=== PATIENT | female | born 1980 | race Caucasian/White ===

== ENCOUNTER → 2024-01-05 10:40 | Outpatient (REF) | payer OTHER, SELFPAY | LOC: WDC 10:40 | PROVIDERS: ATTENDING PHYSICIAN Obstetrics & Gynecology Gynecology; FAMILY PHYSICIAN Family Medicine | DX: Z12.31 Encounter for screening mammogram for malignant neoplasm of breast (principal) | CPT/HCPCS: 77063; 77067 ==

== ENCOUNTER → 2024-01-11 08:51 | Outpatient (REF) | payer OTHER, SELFPAY | LOC: WDC 08:51 | PROVIDERS: ATTENDING PHYSICIAN Obstetrics & Gynecology Gynecology; FAMILY PHYSICIAN Family Medicine | DX: R92.8 Other abnormal and inconclusive findings on diagnostic imaging of breast (principal) | CPT/HCPCS: 76642 ==

== ENCOUNTER 2024-10-01 15:00 | Emergency (ER) | payer OTHER, SELFPAY ==
[2024-10-01 15:04] VITALS: BP 161/102
[2024-10-01 15:31] LABS: % Basophils 0.5 % (0-2); % Eosinophils 0.1 % (0-6); % Immature Granulocytes 0.3 % (0-0.5); % Monocytes 7.6 % (1.7-9.3); % Neutrophils 82.5 % (42.2-75.2); Absolute Basophils 0.1 10^3/uL (0-0.2); Absolute Immature Granulocytes 0.1 10^3/uL (0-0.05); Absolute Lymphocytes 1.6 10^3/uL (1.2-3.4); Absolute Monocytes 1.3 10^3/uL (0.1-0.6); Absolute Neutrophils 14.5 10^3/uL (1.4-6.5); Hematocrit 38.8 % (37.0-47.0); Hemoglobin 13.5 g/dL (12.0-16.0); Mean Corp Hgb Conc. 34.8 g/dL (33.0-37.0); Mean Corpuscular Hgb 31.7 pg (27.0-31.0); Mean Corpuscular Volume 91.1 fL (81.0-99.0); Nucleated Red Blood Cells % 0 %; Platelet Count 290 10^3/uL (130-400); Red Blood Cell Count 4.26 10^6/uL (4.20-5.40); Red Cell Dist. Width 12.2 % (11.5-14.5); White Blood Cell Count 17.6 10^3/uL (4.8-10.8)
[2024-10-01 15:39] LABS: HCG, Serum Qualitative Screen Negative
[2024-10-01 15:40] LABS: INR 0.96; PT 13.1 Sec (11.4-14.6)
[2024-10-01 15:41] LABS: APTT 36.2 Sec (23.4-35.0)
[2024-10-01 15:45] LABS: ALT (SGPT) 17 U/L (0-35); AST (SGOT) 21 U/L (14-36); Albumin 4.6 g/dl (3.5-5.0); Alkaline Phosphatase 106 U/L (38-126); Blood Urea Nitrogen 11 mg/dl (7-17); Calcium 9.6 mg/dl (8.4-10.2); Carbon Dioxide 23 mmol/L (22-30); Chloride 104 mmol/L (98-107); Glucose 110 mg/dl (70-99); Potassium 3.7 mmol/L (3.5-5.1); Sodium 137 mmol/L (135-145); Total Bilirubin 0.7 mg/dl (0.2-1.3); Total Protein 7.6 g/dl (6.3-8.2); eGFR > 60.00
[2024-10-01 17:31] VITALS: BP 126/81
[2024-10-01] MEDS: TYLENOL 1000 MG PO (17:32)
[2024-10-01 17:36] VITALS: BMI 27.5
--- NOTE | 2024-10-01 17:37 | ED.GENMED ---
History of Present Illness
General
Chief Complaint: Fever
Source: patient
Exam Limitations: none
Time Seen by Provider: 10/01/24 17:16
History of Present Illness
History of Present Illness:
44-year-old female otherwise healthy presents complaining of fatigue lower abdominal discomfort chills. She realized after the past 10 days she had a retained tampon. She saw her family doctor today who saw the tampon. The patient self removed
the tampon. She presented here for evaluation with rapid heart rate and fever. She denies vomiting cough chest pain or shortness of breath. No urinary symptoms. No other complaints at this time
Past History
Past History
ED Past Medical History: None
Social History
Tobacco: Non-smoker
Personal:
Living: with family
Phy Exam
Physical Exam
Physical Exam:
General: Well-appearing female no acute respiratory distress
HEENT normocephalic atraumatic
Heart: Tachycardic but regular
Lungs: Clear no wheeze
Abdomen is soft nontender nondistended
Extremities: No cyanosis
Sepsis
Sepsis Screening
Sepsis Assessment: Sepsis
Sepsis Screen
Sepsis Screen: Sepsis
Date: 10/01/24
Time: 20:32
Course
Orders/Labs/Results
Orders:
Orders
10/01/24 15:07
Test Result ONCE
10/01/24 15:09
Electrocardiogram (*1) Urgent
Reason for Study: Tachycardia
EKG- Treatment ONCE
10/01/24 15:18
Complete Blood Count/With Diff Urgent
Comprehensive Metabolic Panel Urgent
HCG, Serum Qualitative Screen Urgent
Lactic Acid Urgent
PT/INR [Prothrombin Time] Urgent
Is patient on Coumadin/Warfarin?: No
Comment: [email or web address]
PTT Urgent
Blood Culture Q30M
TEETEE Source: Blood/Venous
Specimen Description:
10/01/24 17:26
0.9% Sodium Chloride 1000 ml [Nss] 1,000 ml IV BOLUS
Acetaminophen [Tylenol] 1,000 mg PO NOW STA
10/01/24 17:40
Vancomycin [Vancocin] 2,000 mg 0.9% Sodium Chloride 500 ml [Nss] 500 ml IV NOW
10/01/24 17:47
COVID-19 Antigen Urgent
Source: Nasal Swab
Blood Culture Q30M
TEETEE Source: Blood/Venous
Specimen Description:
Influenza A+B Rapid Molecular Urgent
TEETEE Source: Nasal Swab
Specimen Description:
10/01/24 17:48
Urinalysis Reflex To Culture Urgent
Date Specimen was Collected: 10/01/24
Time Specimen was Collected: 17:37
Abnormal Lab Results
10/01/24
15:18
WBC 17.6 H 10^3/uL
(4.8-10.8)
MCH 31.7 H pg
(27.0-31.0)
MPV 11.0 H fL
(7.4-10.4)
Abs Immat Gran (auto) 0.1 H 10^3/uL
(0-0.05)
Absolute Neuts (auto) 14.5 H 10^3/uL
(1.4-6.5)
Absolute Monos (auto) 1.3 H 10^3/uL
(0.1-0.6)
Neutrophils % 82.5 H %
(42.2-75.2)
Lymphocytes % 9.0 L %
(20.5-51.1)
APTT 36.2 H Sec
(23.4-35.0)
Creatinine 0.5 L mg/dL
(0.6-1.0)
Glucose 110 H mg/dl
(70-99)
10/01/24 15:18
10/01/24 15:18
Vital Signs
Initial and Last Documented VS:
Initial Vital Signs
Temp Pulse Resp BP Pulse Ox
101.1 F H 134 16 161/102 98
10/01/24 15:04 10/01/24 15:04 10/01/24 15:04 10/01/24 15:04 10/01/24 15:04
Last Documented Vital Signs
Temp Pulse Resp BP Pulse Ox
98.7 F 99 14 110/69 99
10/01/24 17:32 10/01/24 20:00 10/01/24 20:00 10/01/24 20:00 10/01/24 20:00
MDM/Problems Addressed
Differential Diagnosis Includes:
Patient here with fever tachycardia recent retained tampon which she has since removed. Temperature on arrival was 101.1. Heart rate on exam is in the 120s. Abdomen exam is benign.
Considerations could include toxic shock however blood pressure is stable. Will assess other sources of fever with COVID flu urine test. Fluids ordered Tylenol ordered vancomycin ordered
*Critical Care Note
Total Time (30-74mins, 75-104mins- exclusive of procedures): Not Applicable
Update Note
Update Note:
Heart rate has improved temperature has come down patient feeling better after fluids and vancomycin. Long discussion with patient. Did offer admission secondary to sepsis criteria and blood work however patient is feeling better and wishes to go
home. Will transition her to oral Augmentin by mouth. Return precautions were given. Blood cultures are pending. Did explain that she could become sick and potentially have toxic shock syndrome. She understood this. All questions were answered
ED Attending Note
-
Portions of this chart may have been created with voice recognition software.� Occasional wrong word or��sound alike� substitutions may have occurred due to the inherent limitations of voice recognition software.
Discharge Plan
Departure
Patient Disposition: Home (Routine Discharge)
Date of Disposition: 10/01/24
Time of Disposition: 20:28
Patient with high blood pressure during this ER visit?: No
Discharge Problem:
Fever
Instructions: Toxic Shock Syndrome (DC)
Prescriptions:
New
amoxicillin-pot clavulanate 875-125 mg tablet
1 tab PO BID Qty: 14 0RF
No Action
Flintstones 1 TAB
1 tab PO DAILY
acetaminophen-codeine 1 TABLET tablet
1 tab PO Q4HPRN PRN (Reason: mild pain) Qty: 30 0RF
ibuprofen 600 MG tablet
600 mg PO Q6HPRN PRN (Reason: moderate pain/cramps) Qty: 0 0RF
Referrals:
Rosa Elena Yap MD [Family Provider, Family Practice]
Activity Restrictions/Additional Instructions:
Take antibiotics as directed. Please return here for increasing fever vomiting pain or other concerning findings. You should receive a call if your blood cultures are positive
Interventions
Interventions:
*Risk Screen - Suicide Last Done: 10/01/24 15:07
*Neglect/Abuse Screening Last Done: 10/01/24 15:07
ED- Neurological Assessment Last Done: 10/01/24 17:30
ED-Skin Assessment Last Done: 10/01/24 17:30
Discharge Date and Time
Print Language: CZECH
[2024-10-01] MEDS: NSS 1000 IV (17:39)
[2024-10-01 18:00] VITALS: BP 131/65
[2024-10-01 18:03] LABS: Urine Albumin Negative (Neg - Trace); Urine Bilirubin Negative (Negative); Urine Character Clear (Clear); Urine Color Yellow; Urine Glucose Negative (Negative); Urine Ketone Negative (Negative); Urine Leukocyte Negative (Negative); Urine Nitrite Negative (Negative); Urine Occult Blood Negative (Negative); Urine Specific Gravity 1.005 (<1.030); Urine Urobilinogen Negative (Neg - 1+)
[2024-10-01 18:14] LABS: COVID-19 Antigen Negative (Negative)
[2024-10-01] MEDS: VANCOCIN 540 MG IV (18:14)
[2024-10-01 20:00] VITALS: BP 110/69
== END 2024-10-01 20:40 | disposition home or self-care (01) ==
LOC: EMR 15:00
PROVIDERS: Physician Assistant; EMERGENCY PHYSICIAN Emergency Medicine; FAMILY PHYSICIAN Family Medicine
DX: R50.9 Fever, unspecified (principal); R53.83 Other fatigue; R10.30 Lower abdominal pain, unspecified; R00.0 Tachycardia, unspecified; L29.9 Pruritus, unspecified; Z11.52 Encounter for screening for COVID-19
CPT/HCPCS: 99284; 96365; 96366; 96361; 80053; 81003; 83605; 84703; 85025; 85610; 85730; 87040; 87502; 87811; 93005

== ENCOUNTER → 2025-01-10 12:01 | Outpatient (REF) | payer OTHER, SELFPAY | LOC: WDC 12:01 | PROVIDERS: ATTENDING PHYSICIAN Obstetrics & Gynecology Gynecology; FAMILY PHYSICIAN Family Medicine | DX: Z12.31 Encounter for screening mammogram for malignant neoplasm of breast (principal) | CPT/HCPCS: 77063; 77067 ==

== ENCOUNTER → 2025-01-22 08:31 | Outpatient (REF) | payer OTHER, SELFPAY | LOC: WDC 08:31 | PROVIDERS: ATTENDING PHYSICIAN Obstetrics & Gynecology Gynecology; FAMILY PHYSICIAN Family Medicine; REFERRING PHYSICIAN Nurse Practitioner Adult Health | DX: R92.8 Other abnormal and inconclusive findings on diagnostic imaging of breast (principal); N64.4 Mastodynia | CPT/HCPCS: 76642 ==